=== PATIENT | male | born 1975 | race Two or more races ===

== ENCOUNTER 2024-08-17 08:23 | Outpatient (RCR) | payer MEDICAID, SELFPAY | END 2024-09-09 23:59 | disposition home or self-care (01) | LOC: SCTC 08:23 | PROVIDERS: PCP Family Medicine; Referring Provider Family Medicine; Visit Provider Nurse Practitioner Family | DX: D75.9 Disease of blood and blood-forming organs, unspecified (principal); D73.1 Hypersplenism; K70.31 Alcoholic cirrhosis of liver with ascites; R16.1 Splenomegaly, not elsewhere classified; K80.20 Calculus of gallbladder without cholecystitis without obstruction | CPT/HCPCS: 99212; G0463 ==

== ENCOUNTER → 2024-08-17 | Outpatient (CLI) | payer MEDICAID, SELFPAY ==
[2024-08-17 10:46] LABS: Basophils % (Auto) 1 % (0-2.5); Eosinophils # (Auto) 0.1 Thou/mm3 (0.0-0.5); Eosinophils % (Auto) 3 % (0-10); Hematocrit 32.9 % (41.0-53.0); Hemoglobin 10.4 g/dL (13.5-16.0); Immature Granulocytes % (Auto) 0 % (0-0); Lymphocytes # (Auto) 0.4 Thou/mm3 (1.0-4.8); Lymphocytes % (Auto) 18 % (10-50); Mean Corpuscular HGB Conc 31.6 g/dl (31.0-37.0); Mean Corpuscular Hemoglobin 26.3 pg (25.0-35.0); Mean Corpuscular Volume 83 fL (80-100); Monocytes # (Auto) 0.1 Thou/mm3 (0.0-0.8); Monocytes % (Auto) 6 % (0-12); Neutrophils # (Auto) 1.4 Thou/mm3 (1.8-7.7); Neutrophils % (Auto) 72 % (37-80); Nucleated Red Blood Cell % 0 /100 WBC (0); RDW Standard Deviation 54.8 fL (35.1-43.9); Red Blood Count 3.95 Miln/mm3 (4.50-5.90)
[2024-08-17 11:16] LABS: Alanine Aminotransferase 35 U/L (10-49); Albumin, Serum 3.1 gm/dL (3.5-5.0); Albumin/Globulin Ratio 0.8 (1.2-2.2); Alkaline Phosphatase 144 U/L (46-116); Anion Gap 6 (7-16); Aspartate Amino Transferase 38 U/L (0-34); BUN/Creatinine Ratio 13 Ratio (12-20); Bilirubin,Total 3.1 mg/dL (0.3-1.2); Blood Urea Nitrogen 10 mg/dL (9-23); Calcium 8.3 mg/dL (8.3-10.6); Carbon Dioxide 23.3 mMol/L (20.0-31.0); Chloride 106 mMol/L (98-107); Creatinine (Component) 0.8 mg/dL (0.6-1.3); Globulin 3.7 gm/dL (2.3-3.5); Glucose 176 mg/dL (74-106); Osmolality,Calculated 273 (275-295); Potassium 4.2 mMol/L (3.4-5.1); Sodium 135 mMol/L (136-145); Total Protein 6.8 gm/dL (5.7-8.2); eGFR > 60 See Note
[2024-08-17 11:18] LABS: Platelet Count 42 Thou/mm3 (140-440); White Blood Count 1.9 Thou/mm3 (3.8-10.6)
[2024-08-17 11:19] LABS: Slide Review Platelets confirmed
[2024-08-17 11:27] LABS: Folate > 24.00 ng/mL (>5.38); Vitamin B12 1229 pg/mL (211-911)
[2024-08-17 11:46] LABS: Ferritin 339 ng/mL (10.5-307.3); Iron 114 mcg/dL (65-175); Percent Iron Saturation 70 % (20-55); Total Iron Binding Capacity 161 mcg/dL (250-425); Unsaturated Iron Binding 47 (225-295)
== END | disposition home or self-care (01) ==
LOC: COPL 10:02 → SCTO 10:21
PROVIDERS: PCP Family Medicine; Referring Provider Nurse Practitioner Family; Visit Provider Nurse Practitioner Family
DX: D72.819 Decreased white blood cell count, unspecified (principal)
CPT/HCPCS: 36415; 80053; 82607; 82728; 82746; 83540; 83550; 85025

== ENCOUNTER → 2024-09-21 | Outpatient (CLI) | payer MEDICAID, SELFPAY ==
[2024-09-21 10:20] LABS: Basophils % (Auto) 0 % (0-2.5); Eosinophils % (Auto) 2 % (0-10); Hematocrit 30.8 % (41.0-53.0); Immature Granulocytes % (Auto) 0 % (0-0); Immature Granulocytes Auto 0.01 Thou/mm3 (0.00-0.00); Immature Reticulocyte Fraction 16.7 % (2.3-13.4); Lymphocytes # (Auto) 0.3 Thou/mm3 (1.0-4.8); Lymphocytes % (Auto) 12 % (10-50); Mean Corpuscular HGB Conc 32.5 g/dl (31.0-37.0); Mean Corpuscular Volume 80 fL (80-100); Monocytes # (Auto) 0.1 Thou/mm3 (0.0-0.8); Monocytes % (Auto) 6 % (0-12); Neutrophils # (Auto) 1.9 Thou/mm3 (1.8-7.7); Neutrophils % (Auto) 80 % (37-80); Nucleated Red Blood Cell % 0 /100 WBC (0); Platelet Count 46 Thou/mm3 (140-440); RDW Standard Deviation 52.8 fL (35.1-43.9); Red Blood Count 3.85 Miln/mm3 (4.50-5.90); Reticulocyte % (Auto) 1.6 % (0.5-1.5); Reticulocyte Absolute Auto 62.4 Biln/L (25.0-75.0); Reticulocyte Hgb Content 28.5 pg (28.0-35.0); White Blood Count 2.4 Thou/mm3 (3.8-10.6)
[2024-09-21 10:47] LABS: Alanine Aminotransferase 34 U/L (10-49); Albumin/Globulin Ratio 0.9 (1.2-2.2); Alkaline Phosphatase 178 U/L (46-116); Anion Gap 5 (7-16); Aspartate Amino Transferase 38 U/L (0-34); BUN/Creatinine Ratio 11 Ratio (12-20); Bilirubin,Total 1.7 mg/dL (0.3-1.2); Blood Urea Nitrogen 8 mg/dL (9-23); Calcium (Corrected) 8.8 mg/dL (8.5-10.1); Carbon Dioxide 24.3 mMol/L (20.0-31.0); Chloride 106 mMol/L (98-107); Creatinine (Component) 0.7 mg/dL (0.6-1.3); Globulin 3.3 gm/dL (2.3-3.5); Glucose 155 mg/dL (74-106); Osmolality,Calculated 271 (275-295); Potassium 4.2 mMol/L (3.4-5.1); Sodium 135 mMol/L (136-145); Total Protein 6.3 gm/dL (5.7-8.2); eGFR > 60 See Note
[2024-09-21 10:48] LABS: Slide Review Platelets confirmed
[2024-09-21 10:59] LABS: Folate 23.95 ng/mL (>5.38); Vitamin B12 1802 pg/mL (211-911)
[2024-09-21 11:24] LABS: Ferritin 349 ng/mL (10.5-307.3); Total Iron Binding Capacity 151 mcg/dL (250-425)
[2024-09-21 11:33] LABS: Iron 56 mcg/dL (65-175); Percent Iron Saturation 37 % (20-55); Unsaturated Iron Binding 95 (225-295)
== END | disposition home or self-care (01) ==
LOC: SCTO 09:36
PROVIDERS: PCP Family Medicine; Referring Provider Nurse Practitioner Family; Visit Provider Nurse Practitioner Family
DX: D72.819 Decreased white blood cell count, unspecified (principal)
CPT/HCPCS: 36415; 80053; 82607; 82728; 82746; 83540; 83550; 85025; 85046

== ENCOUNTER 2024-09-25 15:42 | Outpatient (RCR) | payer MEDICAID, SELFPAY | END 2024-10-10 23:59 | disposition home or self-care (01) | LOC: SCTC 15:42 | PROVIDERS: PCP Family Medicine; Referring Provider Family Medicine; Visit Provider Nurse Practitioner Family | DX: D75.9 Disease of blood and blood-forming organs, unspecified (principal); R16.1 Splenomegaly, not elsewhere classified; K70.30 Alcoholic cirrhosis of liver without ascites | CPT/HCPCS: 99212; G0463 ==

== ENCOUNTER → 2024-10-25 | Outpatient (CLI) | payer MEDICAID, SELFPAY ==
--- NOTE | 2024-10-25 08:15 | XR_ITS ---
Examination: Abdomen sonogram, complete Date and time of exam: October 25, 2024 0831 hours INDICATIONS: CT examination April 17, 2024. Cirrhosis, portal hypertension esophageal varices hepatic colopathy Technique: Multiple real-time grayscale transabdominal sonographic images of the abdomen have been obtained. Findings: Multiple gallstones, the largest 19 mm Borderline thickening gallbladder wall 0.42 cm Common bile duct 0.3 cm Pancreatic head 3.1 cm Mid and distal aorta not enlarged Liver 12.7 cm irregular contour mild ascites Normal hepatopedal portal venous flow Patent IVC Right kidney 9.4 x 4.2 x 4.7 cm cortex 2.2 cm Left kidney 12.1 x 4.7 x 5.2 cm cortex 2.2 cm Moderate renal parenchymal scar formation No hydronephrosis Splenomegaly 17.8 cm IMPRESSION: Cholelithiasis Borderline thickening of the gallbladder wall 0.42 cm, consider HIDA scan follow-up to exclude cystic duct obstruction Cirrhosis Prominent splenomegaly Moderate bilateral renal parenchymal scar formation
== END | disposition home or self-care (01) ==
LOC: CDIM 08:16
PROVIDERS: PCP Family Medicine; Referring Provider Internal Medicine; Visit Provider Internal Medicine
DX: K80.20 Calculus of gallbladder without cholecystitis without obstruction (principal); K82.8 Other specified diseases of gallbladder; R16.1 Splenomegaly, not elsewhere classified; N28.89 Other specified disorders of kidney and ureter; K74.60 Unspecified cirrhosis of liver
CPT/HCPCS: 76700

== ENCOUNTER → 2024-12-08 | Outpatient (CLI) | payer MEDICAID, SELFPAY ==
[2024-12-08 13:41] LABS: Basophils % (Auto) 0 % (0-2.5); Eosinophils % (Auto) 0 % (0-10); Hematocrit 27.4 % (41.0-53.0); Hemoglobin 8.9 g/dL (13.5-16.0); Immature Granulocytes % (Auto) 1 % (0-0); Immature Granulocytes Auto 0.06 Thou/mm3 (0.00-0.00); Immature Reticulocyte Fraction 19.5 % (2.3-13.4); Lymphocytes # (Auto) 0.3 Thou/mm3 (1.0-4.8); Lymphocytes % (Auto) 3 % (10-50); Mean Corpuscular HGB Conc 32.5 g/dl (31.0-37.0); Mean Corpuscular Hemoglobin 25.9 pg (25.0-35.0); Mean Corpuscular Volume 80 fL (80-100); Monocytes # (Auto) 0.4 Thou/mm3 (0.0-0.8); Monocytes % (Auto) 4 % (0-12); Neutrophils # (Auto) 8.6 Thou/mm3 (1.8-7.7); Neutrophils % (Auto) 92 % (37-80); Nucleated Red Blood Cell % 0 /100 WBC (0); RDW Standard Deviation 54.5 fL (35.1-43.9); Red Blood Count 3.44 Miln/mm3 (4.50-5.90); Reticulocyte % (Auto) 1.7 % (0.5-1.5); Reticulocyte Absolute Auto 56.8 Biln/L (25.0-75.0); Reticulocyte Hgb Content 27.8 pg (28.0-35.0); White Blood Count 9.3 Thou/mm3 (3.8-10.6)
[2024-12-08 13:57] LABS: Platelet Count 35 Thou/mm3 (140-440)
[2024-12-08 14:09] LABS: Alanine Aminotransferase 53 U/L (10-49); Albumin, Serum 2.3 gm/dL (3.5-5.0); Albumin/Globulin Ratio 0.7 (1.2-2.2); Alkaline Phosphatase 148 U/L (46-116); Anion Gap 5 (7-16); Aspartate Amino Transferase 59 U/L (0-34); BUN/Creatinine Ratio 16 Ratio (12-20); Bilirubin,Total 2.1 mg/dL (0.3-1.2); Blood Urea Nitrogen 19 mg/dL (9-23); Calcium 7.1 mg/dL (8.3-10.6); Calcium (Corrected) 8.5 mg/dL (8.5-10.1); Carbon Dioxide 21.7 mMol/L (20.0-31.0); Chloride 112 mMol/L (98-107); Creatinine (Component) 1.2 mg/dL (0.6-1.3); Globulin 3.3 gm/dL (2.3-3.5); Glucose 118 mg/dL (74-106); Osmolality,Calculated 280 (275-295); Potassium 4.9 mMol/L (3.4-5.1); Sodium 139 mMol/L (136-145); Total Protein 5.6 gm/dL (5.7-8.2); eGFR > 60 See Note
[2024-12-08 14:26] LABS: Path Review Blood Smear Sent to Pathologist; Slide Review Platelets confirmed
[2024-12-08 14:34] LABS: Ferritin 396 ng/mL (10.5-307.3); Iron 71 mcg/dL (65-175); Percent Iron Saturation 49 % (20-55); Total Iron Binding Capacity 144 mcg/dL (250-425); Unsaturated Iron Binding 73 (225-295)
[2024-12-08 14:47] LABS: AFP Non-Pregnant < 1.30 ng/mL (<8.10); Carcinoembryonic Antigen 7.3 ng/mL (0.0-5.0); Folate 18.17 ng/mL (>5.38); Vitamin B12 > 2000 pg/mL (211-911)
[2024-12-14 07:06] LABS: CA 19-9 Antigen* 17 U/mL (<34)
== END | disposition home or self-care (01) ==
LOC: SCTO 13:05
PROVIDERS: PCP Family Medicine; Referring Provider Nurse Practitioner Family; Visit Provider Nurse Practitioner Family
DX: D72.819 Decreased white blood cell count, unspecified (principal)
CPT/HCPCS: 36415; 80053; 82105; 82378; 82607; 82728; 82746; 83540; 83550; 85025; 85046; 86301

== ENCOUNTER 2024-12-28 09:32 | Outpatient (RCR) | payer MEDICAID, SELFPAY | END 2025-01-08 23:59 | disposition home or self-care (01) | LOC: SCTC 09:32 | PROVIDERS: PCP Family Medicine; Referring Provider Family Medicine; Visit Provider Nurse Practitioner Family | DX: D75.9 Disease of blood and blood-forming organs, unspecified (principal); D72.819 Decreased white blood cell count, unspecified; D73.1 Hypersplenism; K70.30 Alcoholic cirrhosis of liver without ascites; K80.20 Calculus of gallbladder without cholecystitis without obstruction | CPT/HCPCS: 99212; G0463 ==

== ENCOUNTER → 2025-01-11 | Outpatient (CLI) | payer MEDICAID, SELFPAY ==
[2025-01-11 14:30] LABS: Basophils % (Auto) 0 % (0-2.5); Eosinophils # (Auto) 0.1 Thou/mm3 (0.0-0.5); Eosinophils % (Auto) 1 % (0-10); Hematocrit 26.9 % (41.0-53.0); Immature Granulocytes % (Auto) 1 % (0-0); Immature Granulocytes Auto 0.13 Thou/mm3 (0.00-0.00); Immature Reticulocyte Fraction 12.9 % (2.3-13.4); Lymphocytes # (Auto) 0.5 Thou/mm3 (1.0-4.8); Lymphocytes % (Auto) 5 % (10-50); Mean Corpuscular HGB Conc 32.3 g/dl (31.0-37.0); Mean Corpuscular Hemoglobin 26.8 pg (25.0-35.0); Mean Corpuscular Volume 83 fL (80-100); Monocytes # (Auto) 0.5 Thou/mm3 (0.0-0.8); Monocytes % (Auto) 4 % (0-12); Neutrophils # (Auto) 9.4 Thou/mm3 (1.8-7.7); Neutrophils % (Auto) 89 % (37-80); Nucleated Red Blood Cell % 0 /100 WBC (0); RDW Standard Deviation 56.4 fL (35.1-43.9); Red Blood Count 3.25 Miln/mm3 (4.50-5.90); Reticulocyte % (Auto) 2.2 % (0.5-1.5); Reticulocyte Absolute Auto 72.8 Biln/L (25.0-75.0); Reticulocyte Hgb Content 28.8 pg (28.0-35.0); White Blood Count 10.5 Thou/mm3 (3.8-10.6)
[2025-01-11 14:33] LABS: Hemoglobin 8.7 g/dL (13.5-16.0); Platelet Count 51 Thou/mm3 (140-440)
[2025-01-11 14:34] LABS: Alanine Aminotransferase 34 U/L (10-49); Albumin, Serum 2.4 gm/dL (3.5-5.0); Albumin/Globulin Ratio 0.6 (1.2-2.2); Alkaline Phosphatase 112 U/L (46-116); Anion Gap 10 (7-16); Aspartate Amino Transferase 25 U/L (0-34); BUN/Creatinine Ratio 24 Ratio (12-20); Bilirubin,Total 3.9 mg/dL (0.3-1.2); Blood Urea Nitrogen 22 mg/dL (9-23); Calcium 7.8 mg/dL (8.3-10.6); Calcium (Corrected) 9.1 mg/dL (8.5-10.1); Carbon Dioxide 19.3 mMol/L (20.0-31.0); Chloride 103 mMol/L (98-107); Creatinine (Component) 0.9 mg/dL (0.6-1.3); Globulin 3.9 gm/dL (2.3-3.5); Glucose 163 mg/dL (74-106); Osmolality,Calculated 271 (275-295); Potassium 2.8 mMol/L (3.4-5.1); Slide Review Platelets confirmed; Sodium 132 mMol/L (136-145); Total Protein 6.3 gm/dL (5.7-8.2); eGFR > 60 See Note
[2025-01-11 14:35] LABS: Ferritin 359 ng/mL (10.5-307.3); Iron 66 mcg/dL (65-175); Percent Iron Saturation 49 % (20-55); Total Iron Binding Capacity 133 mcg/dL (250-425); Unsaturated Iron Binding 67 (225-295)
[2025-01-12 06:17] LABS: AFP Non-Pregnant < 1.30 ng/mL (<8.10); Folate 15.22 ng/mL (>5.38); Vitamin B12 > 2000 pg/mL (211-911)
== END | disposition home or self-care (01) ==
LOC: SCTO 13:07
PROVIDERS: PCP Family Medicine; Referring Provider Nurse Practitioner Family; Visit Provider Nurse Practitioner Family
DX: D72.819 Decreased white blood cell count, unspecified (principal)
CPT/HCPCS: 36415; 80053; 82105; 82607; 82728; 82746; 83540; 83550; 85025; 85046

== ENCOUNTER 2025-01-15 14:22 | Outpatient (RCR) | payer MEDICAID, SELFPAY | END 2025-02-07 23:59 | disposition home or self-care (01) | LOC: SCTC 14:22 | PROVIDERS: PCP Family Medicine; Referring Provider Family Medicine; Visit Provider Nurse Practitioner Family | DX: D75.9 Disease of blood and blood-forming organs, unspecified (principal); R16.1 Splenomegaly, not elsewhere classified; K72.10 Chronic hepatic failure without coma; K80.20 Calculus of gallbladder without cholecystitis without obstruction; K70.31 Alcoholic cirrhosis of liver with ascites; I85.10 Secondary esophageal varices without bleeding | CPT/HCPCS: 99212; G0463 ==

== ENCOUNTER → 2025-02-06 | Outpatient (CLI) | payer MEDICAID, SELFPAY ==
--- NOTE | 2025-02-06 14:30 | XR_ITS ---
Examination: Abdomen sonogram, complete Date and time of exam: February 06, 2025 1433 hours INDICATIONS: Cholelithiasis, cirrhosis diagnosis. Technique: Multiple real-time grayscale transabdominal sonographic images of the abdomen have been obtained. Findings: 13 mm gallstone Gallbladder wall is thickened 0.5 cm Common bile duct 0.3 cm Pancreatic head 3.3 cm Aorta not enlarged Liver 12.5 cm irregular contour Normal hepatopedal portal venous flow Patent IVC Right kidney 9.5 cm cortex 1.7 cm Left kidney 12.1 cm cortex 2.4 cm Mild renal parenchymal scar formation Spleen 17.5 cm IMPRESSION: Cholelithiasis, suspicious for acute cholecystitis, consider HIDA scan or MRCP follow-up Cirrhosis Prominent splenomegaly
== END | disposition home or self-care (01) ==
PROVIDERS: PCP Family Medicine; Referring Provider Nurse Practitioner Family; Visit Provider Internal Medicine Gastroenterology
DX: K80.20 Calculus of gallbladder without cholecystitis without obstruction (principal); R16.1 Splenomegaly, not elsewhere classified
CPT/HCPCS: 76700

== ENCOUNTER → 2025-02-21 | Outpatient (CLI) | payer MEDICAID, SELFPAY ==
[2025-02-21 15:00] LABS: Basophils % (Auto) 1 % (0-2.5); Eosinophils # (Auto) 0.1 Thou/mm3 (0.0-0.5); Eosinophils % (Auto) 2 % (0-10); Hemoglobin 9.2 g/dL (13.5-16.0); Immature Granulocytes % (Auto) 1 % (0-0); Immature Granulocytes Auto 0.01 Thou/mm3 (0.00-0.00); Immature Reticulocyte Fraction 17.9 % (2.3-13.4); Lymphocytes # (Auto) 0.4 Thou/mm3 (1.0-4.8); Lymphocytes % (Auto) 17 % (10-50); Mean Corpuscular HGB Conc 32.9 g/dl (31.0-37.0); Mean Corpuscular Hemoglobin 27.4 pg (25.0-35.0); Mean Corpuscular Volume 83 fL (80-100); Monocytes # (Auto) 0.1 Thou/mm3 (0.0-0.8); Monocytes % (Auto) 5 % (0-12); Neutrophils # (Auto) 1.6 Thou/mm3 (1.8-7.7); Neutrophils % (Auto) 75 % (37-80); Nucleated Red Blood Cell % 0 /100 WBC (0); RDW Standard Deviation 52.7 fL (35.1-43.9); Red Blood Count 3.36 Miln/mm3 (4.50-5.90); Reticulocyte % (Auto) 1.9 % (0.5-1.5); Reticulocyte Absolute Auto 64.8 Biln/L (25.0-75.0); Reticulocyte Hgb Content 30.3 pg (28.0-35.0)
[2025-02-21 15:09] LABS: Platelet Count 39 Thou/mm3 (140-440); White Blood Count 2.2 Thou/mm3 (3.8-10.6)
[2025-02-21 15:12] LABS: Ammonia 41 uMol/L (11-32)
[2025-02-21 15:13] LABS: Alanine Aminotransferase 46 U/L (10-49); Albumin, Serum 2.4 gm/dL (3.5-5.0); Albumin/Globulin Ratio 0.6 (1.2-2.2); Alkaline Phosphatase 164 U/L (46-116); Anion Gap 7 (7-16); Aspartate Amino Transferase 41 U/L (0-34); BUN/Creatinine Ratio 14 Ratio (12-20); Bilirubin,Direct 0.9 mg/dL (0.0-0.3); Bilirubin,Total 1.7 mg/dL (0.3-1.2); Blood Urea Nitrogen 10 mg/dL (9-23); Calcium 6.9 mg/dL (8.3-10.6); Calcium (Corrected) 8.2 mg/dL (8.5-10.1); Carbon Dioxide 20.9 mMol/L (20.0-31.0); Chloride 110 mMol/L (98-107); Creatinine (Component) 0.7 mg/dL (0.6-1.3); Glucose 111 mg/dL (74-106); LDH (Lactate Dehydrogenase) 229 U/L (120-246); Osmolality,Calculated 275 (275-295); Sodium 138 mMol/L (136-145); Total Protein 6.4 gm/dL (5.7-8.2); eGFR > 60 See Note
[2025-02-21 15:20] LABS: INR 1.5 (0.9-1.3); Partial Thromboplastin Time 34.5 Seconds (22.0-36.0); Prothrombin Time 15.9 Seconds (9.0-12.2)
[2025-02-21 15:28] LABS: Ferritin 297 ng/mL (10.5-307.3); Iron 74 mcg/dL (65-175); Percent Iron Saturation 51 % (20-55); Total Iron Binding Capacity 145 mcg/dL (250-425); Unsaturated Iron Binding 71 (225-295)
[2025-02-21 15:40] LABS: Folate 22.18 ng/mL (>5.38); Hepatitis B Surface Antigen Non Reactive (Non React); Vitamin B12 1593 pg/mL (211-911)
[2025-02-21 16:20] LABS: Slide Review Platelets confirmed
== END | disposition home or self-care (01) ==
LOC: COPL 14:04
PROVIDERS: PCP Family Medicine; Referring Provider Internal Medicine Gastroenterology; Visit Provider Nurse Practitioner Family
DX: D72.819 Decreased white blood cell count, unspecified (principal); K74.60 Unspecified cirrhosis of liver; K76.0 Fatty (change of) liver, not elsewhere classified; R10.11 Right upper quadrant pain
CPT/HCPCS: 36415; 80053; 82103; 82105; 82140; 82248; 82390; 82607; 82728; 82746; 83010; 83540; 83550; 83615; 85025; 85046; 85610; 85730; 86038; 86235; 86255; 86376; 87340; 87522

== ENCOUNTER → 2025-03-03 | Outpatient (CLI) | payer MEDICAID, SELFPAY ==
--- NOTE | 2025-03-03 14:00 | XR_ITS ---
Examination: MRI abdomen with intravenous contrast. MRI abdomen without intravenous contrast. Date and time of exam: March 03, 2025 1446 hours Comparison MRI abdomen May 14, 2023 INDICATIONS: Leukopenia, diagnosis and stage liver disease, cirrhosis, esophageal varices post banding Technique: Multiple axial, sagittal and coronal sections of the abdomen obtained. Transverse images, TR 6020, TE 107. T1 weighted transverse images, TR 582, TE 9.5. T2-weighted sagittal images, TR 4000, TE 105. T2-weighted sagittal images, TR 4000, TE 5. Coronal images, TR 4210, TE 107. Axial and coronal images are obtained post 20 cc intravenous injection, gadolinium. Findings: Cirrhosis, liver decreased in size with lobular contour No definite enhancing liver lesions Massive splenomegaly, 19 cm Mild ascites Cholelithiasis No pancreatic mass No dilated pancreatic duct Thickening of the campos of small bowel and colon diffusely No bowel obstruction No hydronephrosis Aorta normal size No abdominal lymphadenopathy IMPRESSION: Cirrhosis Massive splenomegaly Mild ascites Cholelithiasis Hepatic colopathy, hepatic enteropathy
== END | disposition home or self-care (01) ==
PROVIDERS: PCP Family Medicine; Referring Provider Nurse Practitioner Family; Visit Provider Nurse Practitioner Family
DX: R16.1 Splenomegaly, not elsewhere classified (principal); K80.20 Calculus of gallbladder without cholecystitis without obstruction; K70.31 Alcoholic cirrhosis of liver with ascites
CPT/HCPCS: 74183; A9579

== ENCOUNTER 2025-03-08 09:16 | Outpatient (RCR) | payer MEDICAID, SELFPAY | END 2025-03-10 23:59 | disposition home or self-care (01) | LOC: SCTC 09:16 | PROVIDERS: PCP Family Medicine; Referring Provider Family Medicine; Visit Provider Nurse Practitioner Family | DX: D69.6 Thrombocytopenia, unspecified (principal); K70.31 Alcoholic cirrhosis of liver with ascites; K80.20 Calculus of gallbladder without cholecystitis without obstruction; K63.89 Other specified diseases of intestine; I85.10 Secondary esophageal varices without bleeding; K76.6 Portal hypertension | CPT/HCPCS: 99212; G0463 ==